=== PATIENT | male | born 1975 | race Caucasian/White ===

== ENCOUNTER 2023-11-16 07:32 | Outpatient (CLI) | payer OTHER, SELFPAY ==
--- NOTE | 2023-11-16 07:40 | NM_ITS ---
WS: [id number] NUCLEAR MEDICINE HIDA SCAN WITH GALLBLADDER EJECTION FRACTION HISTORY: RUQ PAIN COMPARISON: CT 02/24/2019 TECHNIQUE: The patient was intravenously injected with 10.9 mCi of TC99m Mebrofenin. Immediate imagin g over the right upper quadrant was followed by 5 minute image and additional images for a total of 6 0 minutes. Normal uptake of radiotracer throughout the liver. Activity identified in the gallbladder at 20 minutes and well distended by 60 minutes. Activity in the proximal small bowel was seen by 10 minutes. Good washout of the radiotracer from the liver by 60 minutes. The patient then drank 8 ounces of Ensure Plus. Ejection fraction at 60 minutes was 56%. Normal GB ej ection fraction is 35-75%. Post fatty meal symptoms: None. NM/NM hepatobiliary w phar* [id number] IMPRESSION: 1. Normal HIDA scan. 2. Normal gallbladder ejection fraction.
== END 2023-11-16 07:33 | disposition home or self-care (01) ==
PROVIDERS: Visit Provider Nurse Practitioner Family
DX: R10.84 Generalized abdominal pain (principal); Z87.19 Personal history of other diseases of the digestive system
CPT/HCPCS: 78227; A9537